=== PATIENT | male | born 1965 | race Caucasian/White ===

== ENCOUNTER → 2018-07-10 | Outpatient (CLI) | payer OTHER ==
[2018-07-10 09:28] LABS: Basophils % (A) 0 %; Eosinophils # (A) 0.2 k/uL (0-0.7); Eosinophils % (A) 3 %; HCT 46.1 % (39.0-53.0); Lymphocytes # (A) 1.4 k/uL (1.0-4.8); Lymphocytes % (A) 27 %; MCHC 32.6 g/dL (31.0-37.0); Monocytes # (A) 0.4 k/uL (0-1.0); Monocytes % (A) 7 %; Neutrophils # (A) 3.2 k/uL (1.3-7.7); Neutrophils % (A) 60 %; Platelet Count 192 k/uL (150-450); RBC 5.01 m/uL (4.30-5.90); RDW 13.5 % (11.5-15.5); WBC 5.3 k/uL (3.8-10.6)
[2018-07-10 09:56] LABS: ALT 26 U/L (21-72); AST 25 U/L (17-59); Albumin 4.1 g/dL (3.5-5.0); Alkaline Phosphatase 56 U/L (38-126); Anion Gap 7 mmol/L; Blood Urea Nitrogen 26 mg/dL (9-20); Calcium 9.5 mg/dL (8.4-10.2); Carbon Dioxide 29 mmol/L (22-30); Chloride 104 mmol/L (98-107); Cholesterol 142 mg/dL (<200); Glucose 110 mg/dL (74-99); HDL Cholesterol 30 mg/dL (40-60); LDL Cholesterol,Calculated 76 mg/dL (0-99); Potassium 4.6 mmol/L (3.5-5.1); Sodium 140 mmol/L (137-145); Total Bilirubin 0.6 mg/dL (0.2-1.3); Total Protein 7.3 g/dL (6.3-8.2); Triglycerides 181 mg/dL (<150)
[2018-07-10 10:05] LABS: T4, Free (Free Thyroxine) 0.96 ng/dL (0.78-2.19)
== END | disposition home or self-care (01) ==
LOC: LABWHC1 08:33
PROVIDERS: ATTEND Family Medicine
DX: E78.5 Hyperlipidemia, unspecified (principal); E55.9 Vitamin D deficiency, unspecified; R53.83 Other fatigue
CPT/HCPCS: 36415; 80053; 80061; 82306; 84439; 84443; 85025

== ENCOUNTER → 2022-09-17 | Outpatient (CLI) | payer OTHER ==
[2022-09-17 11:59] LABS: Basophils # (A) 0.01 X 10*3/uL (0.00-0.10); Basophils % (A) 0.2 %; Eosinophils # (A) 0.23 X 10*3/uL (0.04-0.35); Eosinophils % (A) 4.2 %; HCT 42.7 % (39.6-50.0); HGB 14.1 g/dL (13.0-17.0); Immature Grans, Automated 0.4 %; MCH 29.9 pg (27.0-32.0); MCV 90.7 fL (80.0-97.0); Mean Platelet Volume 10.5 fL (9.5-12.2); Monocytes # (A) 0.55 X 10*3/uL (0.20-1.00); Monocytes % (A) 10.1 %; NRBC Per 100 WBC 0 /100 WBCS (0.0-0.0); Neutrophils # (A) 3.31 X 10*3/uL (1.80-7.70); Neutrophils % (A) 61.1 %; Platelet Count 214 X 10*3/uL (140-440); RBC 4.71 X 10*6/uL (4.40-5.60); WBC 5.42 X 10*3/uL (4.50-10.00)
[2022-09-17 12:21] LABS: ALT 18 U/L (10-49); AST 20 U/L (14-35); African American GFR (CKD) 110.7 (60.0-200.0); Albumin 4.2 g/dL (3.8-4.9); Albumin/Globulin Ratio 1.58 (1.60-3.17); Alkaline Phosphatase 61 U/L (41-126); BUN/Creat Ratio 17.45 Ratio (12.00-20.00); Blood Urea Nitrogen 15.3 mg/dL (9.0-27.0); Calcium 9.5 mg/dL (8.7-10.3); Carbon Dioxide 28.8 mmol/L (20.0-27.5); Chloride 102 mmol/L (96-109); Globulin 2.7 g/dL (1.6-3.3); Glucose 116 mg/dL (70-110); LDL Cholesterol,Calculated 76.6 mg/dL (0.0-131.0); Non-African American GFR(CKD) 95.5 (60.0-200.0); Potassium 4.5 mmol/L (3.5-5.5); Sodium 139 mmol/L (135-145); Total Protein 6.9 g/dL (6.2-8.2); Uric Acid 5.3 mg/dL (3.7-8.7)
== END | disposition home or self-care (01) ==
LOC: LABWHC1 07:55
PROVIDERS: ATTEND Physician Assistant
DX: Z00.00 Encounter for general adult medical examination without abnormal findings (principal); Z13.220 Encounter for screening for lipoid disorders; E55.9 Vitamin D deficiency, unspecified; E78.5 Hyperlipidemia, unspecified; E11.9 Type 2 diabetes mellitus without complications; R53.83 Other fatigue
CPT/HCPCS: 36415; 80053; 80061; 82306; 84439; 84443; 84550; 85025

== ENCOUNTER → 2025-04-21 | Outpatient (CLI) | payer OTHER ==
--- NOTE | 2025-04-21 15:26 | US ---
EXAMINATION TYPE: US abdomen complete DATE OF EXAM: 04/21/2025 COMPARISON: NONE CLINICAL INDICATION: Male, 59 years old with history of K40.20 INGUINAL HERNIA BILATERAL; Abd pain. C holecystectomy TECHNIQUE: Grayscale and color Doppler imaging of the abdomen was performed. FINDINGS: EXAM MEASUREMENTS: Liver Length: 15.9 cm Gallbladder: Surgically absent CBD: 0.62 cm, color Doppler imaging was utilized to isolate the common bile duct for measurement. Spleen: 10.2 cm Right Kidney: 12.1 x 6.3 x 5.7 cm Left Kidney: 15.2 x 5.6 x 6.1 cm DIRECTOR IT PROJECT NOTES: Limited due to body habitus and bowel gas Pancreas: Only some body is seen. Remainder is obscured by bowel gas shadowing. The pancreatic duct normal caliber 1.4 mm. Liver: Mildly heterogeneous echotexture may be undetectable basis. No focal lesion. Gallbladder: surgically absent Evidence for sonographic Dobbs's sign: No CBD: wnl Spleen: wnl Right Kidney: A centrally located renal cyst or parapelvic cyst measuring 2.9 x 2.4 x 3.1cm. No yeimi ceal dilatation to suggest hydronephrosis. An extrarenal pelvis is present. Left Kidney: There is an extrarenal pelvis. No calyceal dilatation to suggest hydronephrosis. Upper IVC: wnl Abd Aorta: parts seen appear wnl IMPRESSION: 1. 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 Additionally, there appears to be a 3.1 cm centrally located or parapelvic cyst right kidney. No calyceal dilatation to suggest hydronephrosis. 2. Mildly heterogeneous appearance to the liver may be on a technical basis or could represent nonspe cific hepatocellular disease. 3. Bile duct caliber 6.2 mm, acceptable given patient's age and postcholecystectomy status. [facility], , 04/21/2025 3:24 PM
--- NOTE | 2025-04-21 15:27 | US ---
EXAMINATION TYPE: US groin BILAT DATE OF EXAM: 04/21/2025 COMPARISON: NONE CLINICAL INDICATION: Male, 59 years old with history of K40.20 INGUINAL HERNIA BILATERAL; Swelling in groin TECHNIQUE: Area of swelling scanned. Valsalva was utilized. FINDINGS AND IMPRESSION: Marketing Production Coordinator notes: No obvious abnormalities found on today's study. Slightly limited due to body habi tus [facility], , 04/21/2025 3:25 PM
== END | disposition home or self-care (01) ==
LOC: RADUSWWP 13:50
PROVIDERS: ATTEND Family Medicine
DX: K40.20 Bilateral inguinal hernia, without obstruction or gangrene, not specified as recurrent (principal); K76.89 Other specified diseases of liver; Z90.49 Acquired absence of other specified parts of digestive tract
CPT/HCPCS: 76700; 76882